=== PATIENT | male | born 1990 | race Caucasian/White ===

== ENCOUNTER 2016-04-24 08:04 | Day surgery (SDC) | payer OTHER ==
[2016-04-24] MEDS ORDERED: ceFAZolin 2 GM/50 ML 50 ML IV ONE ×2 (08:30→09:51)
[2016-04-24] MEDS ORDERED: ACETAMINOPHEN 1,000 MG/100 ML 100 ML IV ONE (08:30)
[2016-04-24] MEDS ORDERED: LACTATED RINGERS 1,000 ML IV ONE ×2 (08:58→11:04)
[2016-04-24] MEDS ORDERED: fentaNYL 100 MCG/2 ML VIAL IVP ONE (09:51)
[2016-04-24] MEDS ORDERED: MIDAZOLAM 2 MG/2 ML VIAL IVP ONE (09:51)
[2016-04-24] MEDS ORDERED: KETOROLAC 30 MG/ML VIAL IVP ONE (09:51)
[2016-04-24] MEDS ORDERED: PROPOFOL 200 MG/20 ML VIAL IVP ONE (09:51)
[2016-04-24] MEDS ORDERED: ACETAMINOPHEN 1,000 MG/100 ML VIAL IV ONE (09:51)
[2016-04-24] MEDS ORDERED: ONDANSETRON 4 MG/2 ML VIAL IVP ONE (09:51)
[2016-04-24] MEDS ORDERED: ROPIVACAINE 0.2% PF 20 ML AMPULE SUBQ ONE (10:14)
[2016-04-24] MEDS ORDERED: MORPHINE PF 5 MG/10 ML AMP SUBQ ONE (10:14)
[2016-04-24] MEDS ORDERED: BUPIVACAINE 0.25% PF 30 ML VIAL SUBQ ONE (10:54)
[2016-04-24] MEDS ORDERED: KETOROLAC 15 MG/ML VIAL ONE (10:54)
[2016-04-24] MEDS ORDERED: ONDANSETRON 4 MG/2 ML VIAL ONE (11:09)
[2016-04-24] MEDS: fentaNYL 100 MCG/2 ML VIAL ONE ×2 (11:13→11:18)
[2016-04-24] MEDS ORDERED: oxyCOD/ACETAMIN 5 MG/325 MG TABLET PO ONE (11:49)
== END 2016-04-24 08:05 | disposition home or self-care (01) ==
PROC: 0SBD4ZZ Excision of Left Knee Joint, Percutaneous Endoscopic Approach (ICD-10-PCS; principal; 2016-04-24 11:20)
DX: M23.204 Derangement of unspecified medial meniscus due to old tear or injury, left knee (principal); M22.42 Chondromalacia patellae, left knee; F17.200 Nicotine dependence, unspecified, uncomplicated
CPT/HCPCS: 29876; A9270; J0131; J0690; J7120

== ENCOUNTER 2017-01-06 11:59 | Emergency (ER) | payer SELFPAY ==
[2017-01-06 12:35] LABS: BASOPHILS % (AUTO) 0.7 %; EOSINOPHILS # (AUTO) 0.3 10^3/uL (0.0-0.7); EOSINOPHILS % (AUTO) 4.3 %; HCT - HEMATOCRIT 44.2 % (42.0-52.0); HGB - HEMOGLOBIN 14.9 g/dL (14.0-18.0); LYMPHOCYTES # (AUTO) 1.3 10^3/uL (1.5-3.5); MEAN CORPUSCULAR HEMOGLOBIN 30.3 pg (27.0-31.0); MEAN CORPUSCULAR HGB CONC 33.7 g/dL (32.0-36.0); MEAN CORPUSCULAR VOLUME 89.8 fL (80.0-94.0); MEAN PLATELET VOLUME 7.8 fL (7.4-11.4); MONOCYTES # (AUTO) 0.9 10^3/uL (0.0-1.0); MONOCYTES % (AUTO) 15.7 %; NEUTROPHILS # (AUTO) 3.4 10^3/uL (1.5-6.6); NEUTROPHILS % (AUTO) 57.3 %; NUCLEATED RED BLOOD CELLS AUTO 0.1 /100WBC; RED BLOOD COUNT 4.92 10^6/uL (4.70-6.10); RED CELL DISTRIBUTION WIDTH 13.7 % (12.0-15.0); UNCORRECTED WHITE BLOOD COUNT 5.9 x10^3/uL; WHITE BLOOD COUNT 5.9 x10^3/uL (4.8-10.8)
[2017-01-06 12:48] LABS: ALBUMIN/GLOBULIN RATIO 1.5 (1.0-2.2); BILIRUBIN,TOTAL 0.4 mg/dL (0.2-1.0); CALCIUM 9.5 mg/dL (8.5-10.3); POTASSIUM 3.9 mmol/L (3.5-5.0); TOTAL PROTEIN 8.1 g/dL (6.7-8.2)
--- NOTE | 2017-01-06 15:08 | ED Physician Documentation ---
PD HPI NVD - Stated complaint Stated Complaint: STOMACH PX - Chief complaint Chief Complaint: Trauma Abd - History obtained from History obtained from: Patient - History of Present Illness Timing - onset: How many days ago (5-6 days ago, onset 2 days after return from [facility]) Timing - duration: Days Timing - details: Abrupt onset, Still present Associated symptoms: Abdominal pain (crampy pains associated with frequent watery diarrhea.), Loss of appetite Contributing factors: Travel (came back from [place], [facility] No: Sick contact Improved by: BM Worsened by: Eating Similar symptoms before: Has not had sx before Recently seen: Not recently seen Review of Systems Constitutional: reports: Chills, Myalgias. denies: Fever Nose: denies: Rhinorrhea / runny nose, Congestion Throat: denies: Sore throat Cardiac: denies: Chest pain / pressure Respiratory: denies: Cough GI: reports: Abdominal Pain, Nausea, Diarrhea. denies: Abdominal Swelling, Vomiting, Bloody / black stool : denies: Dysuria, Frequency PD PAST MEDICAL HISTORY - Past Medical History Cardiovascular: None Respiratory: None Endocrine/Autoimmune: None GI: None : None HEENT: None Psych: None Musculoskeletal: Other Derm: None - Past Surgical History Ortho: Other - Present Medications Home Medications: Ambulatory Orders Medication Instructions Recorded Confirmed No Known Home Medications [No 04/22/16 01/06/17 Known Home Medications] Dicyclomine [Bentyl] 10 mg PO TID PRN #15 capsule 01/06/17 Diphenoxylate HCl/Atropine 2 each PO Q6H PRN #20 tablet 01/06/17 [Diphenoxylate-Atrop 2.5-0.025] Sulfamethox/Trimeth 800/160 1 each PO BID #10 tablet 01/06/17 [Bactrim Ds 800/160] - Allergies Allergies/Adverse Reactions: Allergies Allergy/AdvReac Type Severity Reaction Status Date / Time No Known Drug Allergies Allergy Verified 01/06/17 12:07 - Social History Does the pt smoke?: Yes Smoking Status: Current every day smoker Does the pt drink ETOH?: Yes Does the pt have substance abuse?: No - Immunizations Immunizations are current?: Yes - POLST Patient has POLST: No PD ED PE NORMAL - Vitals Vital signs reviewed: Yes - General General: Alert and oriented X 3, No acute distress, Well developed/nourished - Cardiac Cardiac: RRR - Respiratory Respiratory: Clear bilaterally - Abdomen Abdomen: Normal bowel sounds, Soft, Non distended, No organomegaly - Male Male : Deferred - Rectal Rectal: Deferred - Back Back: No CVA TTP - Derm Derm: Normal color, Warm and dry, No rash - Neuro Neuro: Alert and oriented X 3, No motor deficit, Normal speech Results - Vitals Vitals: Vital Signs - 24 hr 01/06/17 01/06/17 12:04 15:15 Temperature 36.5 C Heart Rate 81 76 Respiratory 16 16 Rate Blood Pressure 116/74 116/62 O2 Saturation 99 100 Oxygen O2 Source Room air - Labs Labs: Microbiology 01/06/17 13:00 Clostridium difficile (PCR) - Final Stool 01/06/17 14:00 Campylobacter Antigen Assay - Final Stool Stool Culture - Preliminary Campylobacter Species Laboratory Tests 01/06/17 01/06/17 12:24 12:24 WBC 5.9 RBC 4.92 Hgb 14.9 Hct 44.2 MCV 89.8 MCH 30.3 MCHC 33.7 RDW 13.7 Plt Count 391 MPV 7.8 Neut # 3.4 Lymph # 1.3 L [place] # 0.9 Eos # 0.3 Baso # 0.0 Absolute Nucleated RBC 0.00 Nucleated RBC % 0.1 Sodium 135 Potassium 3.9 Chloride 99 L Carbon Dioxide 26 Anion Gap 10.0 BUN 16 Creatinine 1.0 Estimated GFR (MDRD) 90 Glucose 96 Calcium 9.5 Total Bilirubin 0.4 AST 39 ALT 53 Alkaline Phosphatase 54 Total Protein 8.1 Albumin 4.8 Globulin 3.3 Albumin/Globulin Ratio 1.5 Lipase 24 PD MEDICAL DECISION MAKING - ED course Complexity details: reviewed results (labs here okay. Stool studies pending and will take 1-2 days. Start Bactrim initially and then adjust based on culture. ) , considered differential, d/w patient ED course: he was discharged presuming stool culture would take longer. Did get back Campy positive result couple hours later, so will call maciel nd change to Zithromax. Departure - Departure Disposition: 01 Home, Self Care Clinical Impression: Traveler's diarrhea Condition: Stable Record reviewed to determine appropriate education?: Yes Instructions: ED Diarrhea Traveler Prescriptions: Dicyclomine [Bentyl] 10 mg PO TID PRN #15 capsule PRN Reason: Abdominal Pain Diphenoxylate HCl/Atropine [Diphenoxylate-Atrop 2.5-0.025] 2 each PO Q6H PRN # 20 tablet PRN Reason: Diarrhea Sulfamethox/Trimeth 800/160 [Bactrim Ds 800/160] 1 each PO BID #10 tablet Comments: Drink lots of fluids. Tylenol or ibuprofen if needed for pains or cramps. Use Bactrim twice daily for 5 days for presumed bacterial enteritis. The stool culture and studies will result in a couple of days to see if other things are causing it instead. Use Lomotil 1-2 every 6 hours if needed for diarrhea and dicyclomine can be used for stomach cramps. Recheck if not improved over the next couple of days. Discharge Date/Time: 01/06/17 15:28
[2017-01-06] MEDS: DIPHENOX/ATROPINE 2.5/0.025 MG TABLET PO STA (15:15)
[2017-01-06] MEDS: IBUPROFEN 600 MG TABLET PO STA (15:15)
[2017-01-06] MEDS ORDERED: SULFAMETH/TRIMETH DS 800/160 MG TABLET PO ONE ×2 (15:17→15:28)
[2017-01-06] MEDS ORDERED: IBUPROFEN 600 MG TABLET PO ONE (15:18)
[2017-01-06] MEDS ORDERED: DIPHENOX/ATROPINE 2.5/0.025 MG TABLET PO ONE (15:18)
[2017-01-06] MEDS: SULFAMETH/TRIMETH DS 800/160 MG TABLET PO STA (15:25)
[2017-01-06 15:30] VITALS: BP 116/62
== END 2017-01-06 15:28 | disposition home or self-care (01) ==
LOC: ED 11:59
DX: A09 Infectious gastroenteritis and colitis, unspecified (principal); F17.200 Nicotine dependence, unspecified, uncomplicated
CPT/HCPCS: 36415; 80053; 83690; 85025; 87045; 87046; 87177; 87209; 87493; 99283